=== PATIENT | male | born 1945 | race Caucasian/White ===

== ENCOUNTER 2019-02-08 19:47 | Inpatient (IN) ==
[2019-02-08] MEDS ORDERED: SODIUM CHLORIDE 0.9% 1,000 ML IV STA (20:46)
[2019-02-08] MEDS ORDERED: ONDANSETRON 4 MG/2 ML VIAL IV STA (20:47)
[2019-02-08 21:19] LABS: Calcium 8.6 MG/DL (8.5-10.1); Osmolality,Calculated 284.4 MOS/KG (273-304)
[2019-02-08 21:27] LABS: Basophils % 0.6 % (0.0-0.8); Eosinophils % 0.3 % (0.00-10.9); Hematocrit 20.8 VOL% (42.0-52.0); Immature Granulocytes % 0.6 %; Immature Granulocytes Absolute 0.02 #; Lymphocytes # 0.5 10*3/uL (1.4-4.0); Lymphocytes % 14.6 % (21.2-54.2); Neutrophils % 69.9 % (38.7-73.9); Red Blood Count 2.89 MC/CUMM (3.8-5.5); Red Cell Distribution Width 18.6 % (9.3-17.3); White Blood Count 3.2 T/CUMM (4-12)
[2019-02-08 21:32] LABS: Hemoglobin 5.4 GM/DL (14.0-18.0)
[2019-02-08 21:33] LABS: Platelet Count 18 T/CUMM (130-400)
[2019-02-08] MEDS ORDERED: SODIUM CHLORIDE 0.9% 1,000 ML IV PRN ×2 (22:08→23:47)
[2019-02-08 22:22] LABS: Anisocytosis 1+
[2019-02-08 22:23] LABS: Hypochromasia 2+; Microcytosis 2+; Ovalocytes 1+
[2019-02-08 22:24] LABS: PT Patient Result 11.3 SECS; Polychromasia Slight
[2019-02-08 22:25] LABS: Platelet Estimate Decreased; Tear Drop Cells Slight
[2019-02-08] MEDS ORDERED: ONDANSETRON 4 MG/2 ML VIAL IV PRN (23:41)
[2019-02-08] MEDS ORDERED: ACETAMINOPHEN 325 MG TABLET PO PRN (23:41)
[2019-02-08] MEDS ORDERED: DEXTROSE 50% 25 GM/50 ML VIAL IV PRN (23:53)
[2019-02-08] MEDS ORDERED: GLUCAGON 1 MG VIAL IM PRN (23:53)
[2019-02-09 00:08] LABS: Folate > 24.0 NG/ML (5.4-24.0); Vitamin B12 542 PG/ML (211-911)
[2019-02-09] MEDS ORDERED: SODIUM CHLORIDE 0.9% 1,000 ML IV PRN ×3 (00:12→16:33)
[2019-02-09 00:47] LABS: Basophils % 0.4 % (0.0-0.8); Eosinophils % 0.7 % (0.00-10.9); Hematocrit 20.2 VOL% (42.0-52.0); Immature Granulocytes % 0.7 %; Immature Granulocytes Absolute 0.02 #; Lymphocytes # 0.6 10*3/uL (1.4-4.0); Lymphocytes % 21.1 % (21.2-54.2); Mean Corpuscular HGB Conc 25.2 GM/DL (32-36); Mean Corpuscular Volume 72.4 FL (87-102); Monocytes % 11.6 % (1.7-12.7); Neutrophils % 65.5 % (38.7-73.9); Platelet Count 40 T/CUMM (130-400); Red Blood Count 2.79 MC/CUMM (3.8-5.5); Red Cell Distribution Width 18.7 % (9.3-17.3); White Blood Count 2.8 T/CUMM (4-12)
[2019-02-09 00:53] LABS: Hemoglobin 5.1 GM/DL (14.0-18.0)
[2019-02-09 01:01] LABS: Apearance,Urine CLEAR (Clear); Bacteria,Urine Occasional /HPF (Few); Bilirubin,Urine Negative (Negative); Blood, Urine Negative (Negative); Glucose,Urine (UA) 50 mg/dL (Negative); Ketones,Urine Negative (Negative); Nitrite,Urine Negative (Negative); Protein,Urine Negative; RBC,Urine <1 /HPF (0-4); Urine Color Colorless (Yellow); Urine Specific Gravity 1.003 (1.001-1.035); Urine Urobilinogen < 2.0 EU/DL (0.2-1.0)
[2019-02-09 01:57] LABS: Sedimentation Rate-Westergren 7 MM/HR (0-20)
[2019-02-09 02:03] LABS: Basophils % 0.6 % (0.0-0.8); Eosinophils % 0.9 % (0.00-10.9); Hematocrit 21.3 VOL% (42.0-52.0); Immature Granulocytes % 0.6 %; Immature Granulocytes Absolute 0.02 #; Lymphocytes # 0.9 10*3/uL (1.4-4.0); Lymphocytes % 25.9 % (21.2-54.2); Mean Corpuscular HGB Conc 25.4 GM/DL (32-36); Mean Corpuscular Volume 72.4 FL (87-102); Monocytes % 13.2 % (1.7-12.7); Neutrophils % 58.8 % (38.7-73.9); Red Blood Count 2.94 MC/CUMM (3.8-5.5); Red Cell Distribution Width 18.8 % (9.3-17.3); White Blood Count 3.5 T/CUMM (4-12)
[2019-02-09 02:07] LABS: Hemoglobin 5.4 GM/DL (14.0-18.0)
[2019-02-09 02:08] LABS: Platelet Count 39 T/CUMM (130-400)
[2019-02-09 02:15] LABS: Calcium 8.8 MG/DL (8.5-10.1)
[2019-02-09] MEDS: clonazePAM 0.5 MG TABLET PO SCH ×2 (03:28→21:54)
[2019-02-09] MEDS: FAMOTIDINE 20 MG/2 ML VIAL IV SCH ×2 (03:29→12:32)
[2019-02-09 04:49] LABS: Anisocytosis 2+
[2019-02-09 04:50] LABS: Hypochromasia 1+; Macrocytosis Slight; Microcytosis 1+; Ovalocytes 1+; Platelet Estimate Decreased
[2019-02-09 07:59] LABS: Basophils % 1.1 % (0.0-0.8); Eosinophils # 0.1 10*3/uL (0.0-0.87); Eosinophils % 1.8 % (0.00-10.9); Hematocrit 24.1 VOL% (42.0-52.0); Hemoglobin 6.6 GM/DL (14.0-18.0); Immature Granulocytes % 0.7 %; Immature Granulocytes Absolute 0.02 #; Lymphocytes # 0.7 10*3/uL (1.4-4.0); Lymphocytes % 24.6 % (21.2-54.2); Mean Corpuscular HGB Conc 27.4 GM/DL (32-36); Mean Corpuscular Volume 75.3 FL (87-102); Monocytes % 17.9 % (1.7-12.7); Neutrophils % 53.9 % (38.7-73.9); Red Cell Distribution Width 19.6 % (9.3-17.3); White Blood Count 2.9 T/CUMM (4-12)
[2019-02-09 08:24] LABS: Platelet Count 38 T/CUMM (130-400)
[2019-02-09] MEDS: INSULIN REGULAR 100 UNIT/ML SUBCUT SCH ×4 (08:33→22:01)
[2019-02-09 08:40] LABS: Eosinophils 2 % (0-10); Hypochromasia 2+; Lymphocytes 16 % (20-55); Ovalocytes Few; Polychromasia Few; Segmented Neutrophils 69 % (50-85); Total Cells Counted 100
[2019-02-09 08:41] LABS: Burr Cells Few; Elliptocytes Few; Microcytosis 1+; Platelet Estimate Decreased
[2019-02-09] MEDS: LISINOPRIL 20 MG TABLET PO SCH (09:01)
[2019-02-09] MEDS: FENOFIBRATE 160 MG TABLET PO SCH (09:01)
[2019-02-09] MEDS: ATORVASTATIN 20 MG TABLET PO SCH (09:01)
[2019-02-09] MEDS: PREGABALIN 100 MG CAPSULE PO SCH ×2 (09:01→21:54)
[2019-02-09 10:03] LABS: Atypical Lymphocytes Few; Band Neutrophils 4 % (0-10); Hypochromasia 3+; Lymphocytes 26 % (20-55); Metamyelocytes 3 %; Segmented Neutrophils 60 % (50-85); Total Cells Counted 100
[2019-02-09 10:04] LABS: Microcytosis 2+
[2019-02-09 10:05] LABS: Elliptocytes Few; Hypersegmented Neutrophil Few; Ovalocytes Few; Platelet Estimate Decreased; Schistocytes Slight
[2019-02-09 10:17] LABS: Anisocytosis 1+; Poikilocytosis 2+
[2019-02-09 10:18] LABS: Spherocytes Slight
[2019-02-09] MEDS: PANTOPRAZOLE 40 MG VIAL IV SCH ×2 (12:33→21:56)
[2019-02-09 14:01] LABS: Basophils % 1.1 % (0.0-0.8); Eosinophils % 1.5 % (0.00-10.9); Hematocrit 25.8 VOL% (42.0-52.0); Hemoglobin 7.3 GM/DL (14.0-18.0); Immature Granulocytes % 0.8 %; Immature Granulocytes Absolute 0.02 #; Lymphocytes # 0.6 10*3/uL (1.4-4.0); Lymphocytes % 23.9 % (21.2-54.2); Mean Corpuscular HGB Conc 28.3 GM/DL (32-36); Mean Corpuscular Volume 76.8 FL (87-102); Monocytes % 15.9 % (1.7-12.7); Neutrophils % 56.8 % (38.7-73.9); Red Blood Count 3.36 MC/CUMM (3.8-5.5); Red Cell Distribution Width 19.9 % (9.3-17.3); White Blood Count 2.6 T/CUMM (4-12)
[2019-02-09 14:04] LABS: Platelet Count 38 T/CUMM (130-400)
[2019-02-09 18:43] LABS: Hemoglobin 8.7 GM/DL (14.0-18.0)
[2019-02-09 18:47] LABS: Hematocrit 30.2 VOL% (42.0-52.0)
[2019-02-09 19:07] LABS: Eosinophils 2 % (0-10); Lymphocytes 26 % (20-55); Platelet Estimate Decreased; Segmented Neutrophils 62 % (50-85); Total Cells Counted 100
[2019-02-09 19:08] LABS: Microcytosis 1+
[2019-02-09 19:09] LABS: Ovalocytes Slight
[2019-02-09] MEDS: FERROUS SULFATE 325 MG TABLET PO SCH (21:54)
[2019-02-10] LABS: Eosinophils # 0.1 10*3/uL (0.0-0.87); Eosinophils % 1.6 % (0.00-10.9); Hematocrit 27.1 VOL% (42.0-52.0); Hemoglobin 7.8 GM/DL (14.0-18.0); Immature Granulocytes Absolute 0.03 #; Lymphocytes # 0.7 10*3/uL (1.4-4.0); Lymphocytes % 23.5 % (21.2-54.2); Mean Corpuscular HGB Conc 28.8 GM/DL (32-36); Mean Corpuscular Volume 77.7 FL (87-102); Monocytes % 12.7 % (1.7-12.7); Neutrophils % 60.2 % (38.7-73.9); Platelet Count 54 T/CUMM (130-400); Red Blood Count 3.49 MC/CUMM (3.8-5.5); Red Cell Distribution Width 20.3 % (9.3-17.3); White Blood Count 3.1 T/CUMM (4-12)
[2019-02-10] MEDS ORDERED: SODIUM CHLORIDE 0.9% 1,000 ML IV PRN ×2 (01:44→02:20)
[2019-02-10] MEDS: FAMOTIDINE 20 MG/2 ML VIAL IV SCH ×3 (02:16→23:21)
[2019-02-10 06:43] LABS: Total Protein (Chem) 6.1 G/DL (6.4-8.3)
[2019-02-10] MEDS: INSULIN REGULAR 100 UNIT/ML SUBCUT SCH ×4 (08:24→20:39)
[2019-02-10] MEDS: PANTOPRAZOLE 40 MG VIAL IV SCH ×2 (08:43→21:21)
[2019-02-10] MEDS ORDERED: PROPOFOL 200 MG/20 ML VIAL IV ONE (09:00)
[2019-02-10] MEDS ORDERED: LIDOCAINE 2% 5 ML VIAL ONE (09:00)
[2019-02-10 09:21] LABS: Albumin (SPE) 4.5 G/DL (3.2-5.3); Alpha 1 (SPE) 0.2 G/DL (0.1-0.4); Alpha 1 (SPE) Rel % 2.6 %; Alpha 2 (SPE) 0.5 G/DL (0.4-1.0); Alpha 2 (SPE) Rel % 7.5 %; Beta (SPE) 0.6 G/DL (0.5-1.1); Beta (SPE) Rel % 9.8 %; Gamma (SPE) 0.4 G/DL (0.7-1.7); Gamma (SPE) Rel % 6.1 %
[2019-02-10] MEDS: PREGABALIN 100 MG CAPSULE PO SCH ×2 (09:26→21:21)
[2019-02-10] MEDS: FERROUS SULFATE 325 MG TABLET PO SCH ×2 (09:26→21:22)
[2019-02-10 10:17] LABS: Hematocrit 36.2 VOL% (42.0-52.0); Hemoglobin 10.8 GM/DL (14.0-18.0)
[2019-02-10 10:39] LABS: Basophils # 0.1 10*3/uL (0.0-0.2); Basophils % 1.2 % (0.0-0.8); Eosinophils # 0.1 10*3/uL (0.0-0.87); Eosinophils % 1.9 % (0.00-10.9); Hematocrit 36.9 VOL% (42.0-52.0); Immature Granulocytes % 0.7 %; Immature Granulocytes Absolute 0.03 #; Lymphocytes # 0.6 10*3/uL (1.4-4.0); Lymphocytes % 13.4 % (21.2-54.2); Mean Corpuscular Volume 78.8 FL (87-102); Monocytes % 11.5 % (1.7-12.7); NRBC # 0.02 10*3/uL; Neutrophils % 71.3 % (38.7-73.9); Red Blood Count 4.68 MC/CUMM (3.8-5.5); Red Cell Distribution Width 19.9 % (9.3-17.3); White Blood Count 4.3 T/CUMM (4-12)
[2019-02-10 10:40] LABS: Hemoglobin 10.7 GM/DL (14.0-18.0); Platelet Count 70 T/CUMM (130-400)
[2019-02-10 10:45] LABS: Albumin 4.3 G/DL (3.4-5.0); Bilirubin,Total 1.9 MG/DL (0.2-1.0); Calcium 8.7 MG/DL (8.5-10.1); Osmolality,Calculated 287.7 MOS/KG (273-304); Thyroid Stimulating Hormone 0.707 uIU/ml (0.358-3.74); Total Protein 6.7 G/DL (6.4-8.3)
[2019-02-10] MEDS ORDERED: BISACODYL 5 MG TABLET PO ONE (12:00)
[2019-02-10] MEDS: FENOFIBRATE 160 MG TABLET PO SCH (13:34)
[2019-02-10] MEDS: ATORVASTATIN 20 MG TABLET PO SCH (13:34)
[2019-02-10] MEDS: LISINOPRIL 20 MG TABLET PO SCH (13:34)
[2019-02-10] MEDS: SODIUM CHLORIDE 0.9% 1,000 ML IV SCH ×2 (14:39→23:30)
[2019-02-10] MEDS: amLODIPine 5 MG TABLET PO SCH (17:08)
[2019-02-10] MEDS ORDERED: POLYETHYLENE GLYCOL POWDER 255 GM BOTTLE PO ONE ×2 (18:00)
[2019-02-10] MEDS: LACTATED RINGERS 1,000 ML IV SCH (20:14)
[2019-02-10] MEDS: clonazePAM 0.5 MG TABLET PO SCH (21:21)
[2019-02-11 05:11] LABS: Basophils # 0.1 10*3/uL (0.0-0.2); Basophils % 1.2 % (0.0-0.8); Eosinophils # 0.1 10*3/uL (0.0-0.87); Eosinophils % 2.9 % (0.00-10.9); Hematocrit 34.8 VOL% (42.0-52.0); Hemoglobin 10.5 GM/DL (14.0-18.0); Immature Granulocytes % 0.5 %; Immature Granulocytes Absolute 0.02 #; Lymphocytes # 0.9 10*3/uL (1.4-4.0); Lymphocytes % 20.8 % (21.2-54.2); Mean Corpuscular HGB Conc 30.2 GM/DL (32-36); Mean Corpuscular Volume 77.5 FL (87-102); Neutrophils % 59.6 % (38.7-73.9); Platelet Count 56 T/CUMM (130-400); Red Blood Count 4.49 MC/CUMM (3.8-5.5); Red Cell Distribution Width 20.8 % (9.3-17.3); White Blood Count 4.1 T/CUMM (4-12)
[2019-02-11 05:38] LABS: Band Neutrophils 1 % (0-10); Elliptocytes Few; Eosinophils 3 % (0-10); Hypochromasia 1+; Lymphocytes 25 % (20-55); Platelet Estimate Decreased; Segmented Neutrophils 59 % (50-85); Total Cells Counted 100
[2019-02-11] MEDS: INSULIN REGULAR 100 UNIT/ML SUBCUT SCH ×4 (08:01→20:37)
[2019-02-11] MEDS ORDERED: SODIUM CHLORIDE 0.9% 1,000 ML IV PRN (08:19)
[2019-02-11] MEDS: PANTOPRAZOLE 40 MG VIAL IV SCH (08:37)
[2019-02-11] MEDS ORDERED: PROPOFOL 200 MG/20 ML VIAL IV ONE (09:00)
[2019-02-11] MEDS ORDERED: LIDOCAINE 1% 5 ML VIAL ONE (09:00)
[2019-02-11] MEDS: LACTATED RINGERS 1,000 ML IV SCH (09:50)
[2019-02-11] MEDS: PREGABALIN 100 MG CAPSULE PO SCH ×2 (12:52→21:02)
[2019-02-11] MEDS: FERROUS SULFATE 325 MG TABLET PO SCH ×2 (12:52→21:02)
[2019-02-11] MEDS: FENOFIBRATE 160 MG TABLET PO SCH (12:52)
[2019-02-11] MEDS: LISINOPRIL 20 MG TABLET PO SCH (12:52)
[2019-02-11] MEDS: ATORVASTATIN 20 MG TABLET PO SCH (12:52)
[2019-02-11] MEDS: amLODIPine 5 MG TABLET PO SCH (12:52)
[2019-02-11] MEDS: SODIUM CHLORIDE 0.9% 1,000 ML IV SCH ×2 (12:56→21:06)
[2019-02-11] MEDS: clonazePAM 0.5 MG TABLET PO SCH (21:02)
[2019-02-11] MEDS: PANTOPRAZOLE 40 MG TABLET PO SCH (21:02)
[2019-02-12] MEDS: SODIUM CHLORIDE 0.9% 1,000 ML IV SCH (05:55)
[2019-02-12 05:57] LABS: Basophils # 0.1 10*3/uL (0.0-0.2); Basophils % 1.5 % (0.0-0.8); Eosinophils # 0.1 10*3/uL (0.0-0.87); Eosinophils % 2.7 % (0.00-10.9); Hematocrit 34.9 VOL% (42.0-52.0); Hemoglobin 10.3 GM/DL (14.0-18.0); Immature Granulocytes % 0.9 %; Immature Granulocytes Absolute 0.03 #; Lymphocytes # 0.7 10*3/uL (1.4-4.0); Lymphocytes % 19.8 % (21.2-54.2); Mean Corpuscular HGB Conc 29.5 GM/DL (32-36); Mean Corpuscular Volume 78.6 FL (87-102); Monocytes % 15.4 % (1.7-12.7); Neutrophils % 59.7 % (38.7-73.9); Platelet Count 71 T/CUMM (130-400); Red Blood Count 4.44 MC/CUMM (3.8-5.5); Red Cell Distribution Width 21.2 % (9.3-17.3); White Blood Count 3.4 T/CUMM (4-12)
[2019-02-12 06:21] LABS: Hypochromasia 1+; Ovalocytes Slight; Platelet Estimate Decreased
[2019-02-12] MEDS: LACTATED RINGERS 1,000 ML IV SCH (06:58)
[2019-02-12] MEDS: INSULIN REGULAR 100 UNIT/ML SUBCUT SCH ×4 (08:57→20:32)
[2019-02-12] MEDS: FERROUS SULFATE 325 MG TABLET PO SCH ×2 (08:59→20:31)
[2019-02-12] MEDS: PREGABALIN 100 MG CAPSULE PO SCH ×2 (08:59→20:31)
[2019-02-12] MEDS: ATORVASTATIN 20 MG TABLET PO SCH (08:59)
[2019-02-12] MEDS: amLODIPine 5 MG TABLET PO SCH (08:59)
[2019-02-12] MEDS: FENOFIBRATE 160 MG TABLET PO SCH (08:59)
[2019-02-12] MEDS: PANTOPRAZOLE 40 MG TABLET PO SCH ×2 (08:59→20:31)
[2019-02-12] MEDS: LISINOPRIL 20 MG TABLET PO SCH (08:59)
[2019-02-12 09:08] LABS: Immuno Free Light Chain Kappa 1.73 MG/DL (0.33-1.94); Immuno Free Light Chain Lambda 1.45 MG/DL (0.57-2.63); Immuno Free Light Chain Ratio 1.19 MG/DL (0.26-1.65)
[2019-02-12] MEDS: clonazePAM 0.5 MG TABLET PO SCH (20:32)
[2019-02-13] MEDS: INSULIN REGULAR 100 UNIT/ML SUBCUT SCH ×2 (07:33→12:07)
[2019-02-13] MEDS: FENOFIBRATE 160 MG TABLET PO SCH (10:56)
[2019-02-13] MEDS: PANTOPRAZOLE 40 MG TABLET PO SCH (10:56)
[2019-02-13] MEDS: PREGABALIN 100 MG CAPSULE PO SCH (10:56)
[2019-02-13] MEDS: amLODIPine 5 MG TABLET PO SCH (10:57)
[2019-02-13] MEDS: ATORVASTATIN 20 MG TABLET PO SCH (10:57)
[2019-02-13] MEDS: LISINOPRIL 20 MG TABLET PO SCH (10:57)
[2019-02-13] MEDS: FERROUS SULFATE 325 MG TABLET PO SCH (10:57)
[2019-02-13 12:06] VITALS: BP 153/80
== END 2019-02-13 16:07 | disposition home or self-care (01) | DRG 810 ==
LOC: N.ED 19:47 → N.EDINP 23:41 → SUATTDRO 23:41 → N.5E 02-09 00:41
PROVIDERS: ADMIT Internal Medicine; ATTEND Internal Medicine Cardiovascular Disease